=== PATIENT | female | born 1960 | race Two or more races ===

== ENCOUNTER → 2016-11-02 | Outpatient (CLI) | payer BC ==
[~2016-11-02] MED LIST: AMLO10TA2 PO; LISI-170 PO; METO-99 PO; OXYC15TA PO
[2016-11-02 09:42] LABS: HEMOGLOBIN 14.2 g/dL (11.7-16.4)
[2016-11-02 09:52] LABS: ASPARTATE AMINO TRANSFERASE 13 U/L (15-37); BLOOD UREA NITROGEN 13 mg/dL (7-18)
== END | disposition home or self-care (01) ==
LOC: STAR 08:23
PROVIDERS: ATTEND Neurological Surgery
DX: Z01.818 Encounter for other preprocedural examination (principal)
CPT/HCPCS: 36415; 71020; 80053; 81001; 85025; 85610; 85730; 93005